=== PATIENT | male | born 1975 ===

== ENCOUNTER 2021-06-19 09:42 | Outpatient (REF) | payer SELFPAY ==
--- NOTE | 2021-06-19 12:51 | MHC.AU.HFU ---
Hearing Instrument Follow-Up- Binaural Date of Visit: 06/19/21 Summary: Patient was seen for earmold impressions. He will be sending them in on his own to get an in-ear music monitor. Took earmolds impressions bilaterally without incident. Returned the impressions to the patient. Advised to return if any problems arise. Recommendations: Recommendations: Please contact our clinic with any questions or concerns. Diagnosis Code(s): Primary Diagnosis: H93.293 Abnormal Auditory Perception Signature: Provider: Leilani Cook, CCC-A
== END 2021-06-19 09:43 | disposition home or self-care (01) ==
LOC: HO.HAP 09:42
PROVIDERS: Visit Provider Physician Assistant
DX: Z46.1 Encounter for fitting and adjustment of hearing aid (principal); H93.293 Other abnormal auditory perceptions, bilateral
CPT/HCPCS: 92700